=== PATIENT | male | born 1940 ===

== ENCOUNTER 2024-09-05 08:47 | Outpatient (CLI) | payer MEDICARE, MEDICAID ==
[2024-09-05] VITALS (21 sets, daily range): BP systolic 107–145; BP diastolic 63–88; PULSE 55–76
== END 2024-09-05 23:59 | disposition home or self-care (01) ==
LOC: CARD DIAG 08:47
PROVIDERS: ATTEND Internal Medicine Interventional Cardiology
DX: R55 Syncope and collapse (principal)
CPT/HCPCS: 93660